=== PATIENT | male | born 1955 ===

== ENCOUNTER 2019-10-15 08:15 | Day surgery (SDC) | payer BC, MEDICARE ==
[~2019-10-15 08:15] MED LIST: Lactated Ringers 1,000 ML IV SCH; Sodium Chloride 0.9% 10 ML SDV IV PRN; Sodium Chloride 0.9% 10 ML Syringe FLUSH PRN; Sodium Chloride 0.9% 2.5 ML Syringe FLUSH PRN; ceFAZolin 1 GM in Premix Bag 1 BAG IV ONE
[2019-10-15] MEDS ORDERED: Propofol 200 MG/20 ML SDV ONE (08:48)
[2019-10-15] MEDS ORDERED: fentaNYL 100 MCG/2 ML SDV ONE (08:48)
[2019-10-15] MEDS ORDERED: Lidocaine 2% 5 ML SDV ONE (08:49)
--- NOTE | 2019-10-15 09:01 | PCM.PREANE ---
Preanesthetic Assessment - Anesthesia/Transfusion/Family Hx Anesthesia History: Prior Anesthesia Without Reaction Family History of Anesthesia Reaction: No Transfusion History: No Prior Transfusion(s) - Review of Systems General: No Symptoms Pulmonary: No Symptoms Cardiovascular: No Symptoms Gastrointestinal: No Symptoms Neurological: No Symptoms Other: Reports: None - Physical Assessment NPO Status Date: 09/15/19 NPO Status Time: 18:00 Vital Signs: Last Vital Signs Temp 97.2 F 10/15/19 08:25 Pulse 64 10/15/19 08:25 Resp 16 10/15/19 08:25 BP 138/84 10/15/19 08:25 Pulse Ox 96 10/15/19 08:25 Height: 5 ft 10 in Weight: 86.183 kg ASA Class: 1 Mental Status: Alert & Oriented x3 Airway Class: Mallampati = 2 Dentition: Reports: Normal Dentition ROM/Head Extension: Full Lungs: Clear to Auscultation, Normal Respiratory Effort Cardiovascular: Regular Rate, Regular Rhythm - Allergies Allergies/Adverse Reactions: Allergies Allergy/AdvReac Type Severity Reaction Status Date / Time animal dander Allergy SOB, Verified 10/11/19 09:08 watery eyes, sneezing - Blood Blood Available: No - Anesthesia Plan Pre-Op Medication Ordered: None - Acknowledgements Anesthesia Type Planned: General Anesthesia Pt an Appropriate Candidate for the Planned Anesthesia: Yes Alternatives and Risks of Anesthesia Discussed w Pt/Guardian: Yes Pt/Guardian Understands and Agrees with Anesthesia Plan: Yes PreAnesthesia Questionnaire HEENT History: Reports: Other (See Below) Other HEENT History: reading glasses Cardiovascular History: Reports: None Respiratory History: Reports: None Gastrointestinal History: Reports: None Other Genitourinary History: hx bladder cancer Musculoskeletal History: Reports: Fracture Other Musculoskeletal History: hx fx hand Neurological History: Reports: None Endocrine/Metabolic History: Reports: None Hematologic History: Reports: None Immunologic History: Reports: None Oncologic (Cancer) History: Reports: Bladder Dermatologic History: Reports: None - Past Surgical History Head Surgeries/Procedures: Reports: None HEENT Surgical History: Reports: None Cardiovascular Surgical History: Reports: None Respiratory Surgical History: Reports: None GI Surgical History: Reports: Colonoscopy Other Female Surgeries/Procedures: bladder cystotomy with fulgeration of bladder tumors Male Surgical History: Reports: TURBT-Transurethral Resection of Bladder Tumor Endocrine Surgical History: Reports: None Neurological Surgical History: Reports: None Musculoskeletal Surgical History: Reports: Arthroscopic Knee Oncologic Surgical History: Reports: Other (See Below) Other Oncologic Surgeries/Procedures: fulgeration of bladder tumors Dermatological Surgical History: Reports: None - SUBSTANCE USE Smoking Status *Q: Never Smoker Days Per Week of Alcohol Use: 7 Number of Drinks Per Day: 2 Total Drinks Per Week: 14 - HOME MEDS Home Medications: Home Meds Ascorbic Acid [Vitamin C] 2,000 mg PO DAILY 10/10/19 [History] Vitamin A 10,000 units PO DAILY 10/10/19 [History] Vitamin E 400 units PO DAILY 10/10/19 [History] - CURRENT (IN HOUSE) MEDS Current Meds: Current Medications Lactated Ringer's (Ringers, Lactated) 1,000 mls @ 100 mls/hr IV ASDIRECTED CHELSI Last Admin: 10/15/19 08:56 Dose: 100 mls/hr Sodium Chloride (Saline Flush) 10 ml FLUSH ASDIRECTED PRN PRN Reason: Keep Vein Open Sodium Chloride (Saline Flush) 2.5 ml FLUSH ASDIRECTED PRN PRN Reason: Keep Vein Open Sodium Chloride (Normal Saline) 10 ml IV ASDIRECTED PRN PRN Reason: IV Use Discontinued Medications Fentanyl (Sublimaze) Confirm Administered Dose 100 mcg .ROUTE .STK-MED ONE Stop: 10/15/19 08:49 Cefazolin Sodium/Dextrose 1 gm (/ Premix) 50 mls @ 100 mls/hr IV ONCALL ONE Stop: 10/15/19 00:30 Lidocaine (Xylocaine-Mpf 2%) Confirm Administered Dose 5 ml .ROUTE .STK-MED ONE Stop: 10/15/19 08:50 Propofol (Diprivan 20 Ml) Confirm Administered Dose 200 mg .ROUTE .STK-MED ONE Stop: 10/15/19 08:49
[2019-10-15] MEDS ORDERED: Ondansetron 4 MG/2 ML SDV ONE (10:04)
--- NOTE | 2019-10-15 11:27 | PCM48HPAN ---
Post Anesthesia Note - EVALUATION WITHIN 48HRS OF ANESTHETIC Vital Signs in Normal Range: Yes Patient Participated in Evaluation: Yes Respiratory Function Stable: Yes Airway Patent: Yes Cardiovascular Function Stable: Yes Hydration Status Stable: Yes Pain Control Satisfactory: Yes Nausea and Vomiting Control Satisfactory: Yes Mental Status Recovered: Yes Vital Signs: Last Vital Signs Temp 97.3 F 10/15/19 11:13 Pulse 60 10/15/19 11:13 Resp 14 10/15/19 11:13 BP 112/75 10/15/19 11:13 Pulse Ox 99 10/15/19 11:13
--- NOTE | 2019-10-15 11:27 | PCM.POSTAN ---
POST ANESTHESIA ASSESSMENT - MENTAL STATUS Mental Status: Alert, Oriented - VITAL SIGNS Vital Signs: Last Vital Signs Temp 97.3 F 10/15/19 11:13 Pulse 60 10/15/19 11:13 Resp 14 10/15/19 11:13 BP 112/75 10/15/19 11:13 Pulse Ox 99 10/15/19 11:13 - RESPIRATORY Respiratory Status: Respiratory Rate WNL, Airway Patent, O2 Saturation Stable - CARDIOVASCULAR CV Status: Pulse Rate WNL, Blood Pressure Stable - GASTROINTESTINAL GI Status: No Symptoms - POST OP HYDRATION Hydration Status: Adequate & Stable
[2019-10-15 11:31] VITALS: BP 126/78; PULSE 61
--- NOTE | 2019-10-15 14:35 | OR ---
SURGEON: Florentin Chavez M.D. DATE OF PROCEDURE: 10/15/2019 PREOPERATIVE DIAGNOSIS: Two small papillary bladder tumors, one at the 2 o'clock position just immediately behind the neck of the bladder, that is about maybe 3 or 4 mm in measurement, and the other one is a smaller one yet involving a small part of the right ureteral orifice. PROCEDURE: Fulguration of both. DESCRIPTION OF PROCEDURE: The patient was given general anesthesia. He was in dorsal lithotomy position, prepped and draped in sterile drapes. Cystourethroscopy was done, the urethra was normal. The tumor behind the neck of the bladder on the left side was fulgurated first. The small tumor, probably 3 mm in greatest dimension, papillary, involving the right ureteral orifice, that was removed using the cold cup biopsy forceps and the base of it was fulgurated. The patient tolerated both procedures well. The rest of the bladder was clean. The bladder was emptied, and the patient was moved to recovery room in good condition. He comes back to the office in 4 months for cystoscopy. HUAN / ALEXIS /[id number]
[2019-10-16] MEDS ORDERED: Ascorbic Acid 500 MG Tab PO SCH (09:00)
[2019-10-16] MEDS ORDERED: Non-Formulary Medication 1 Each (Vitamin E [Vitamin E] 400 UNITS) PO SCH (09:00)
[2019-10-16] MEDS ORDERED: VITAMIN A 10000 UNIT PO SCH (09:00)
== END 2019-10-15 11:48 | disposition home or self-care (01) ==
LOC: MW.SDS 08:15
PROVIDERS: ATTEND Urology
DX: D49.4 Neoplasm of unspecified behavior of bladder (principal); Z85.51 Personal history of malignant neoplasm of bladder; Z98.890 Other specified postprocedural states; Z91.048 Other nonmedicinal substance allergy status
CPT/HCPCS: 52234; J0690; J2001; J2405; J2704; J3010; J7120; 00912

== ENCOUNTER 2020-03-05 07:25 | Day surgery (SDC) | payer BC, MEDICARE ==
[~2020-03-05 07:25] MED LIST changes: +Ketorolac 30 MG/ML SDV ONE; +Midazolam 1 MG/ML 2 ML SDV ONE; +Ondansetron 4 MG/2 ML SDV ONE; +Propofol 200 MG/20 ML SDV ONE; +Rocuronium Bromide 50 MG/5 ML Syringe ONE; +fentaNYL 100 MCG/2 ML SDV ONE
[2020-03-05] MEDS ORDERED: Sugammadex Sodium 200 MG/2 ML VIAL ONE (07:30)
--- NOTE | 2020-03-05 08:29 | PCM.PREANE ---
Preanesthetic Assessment - Anesthesia/Transfusion/Family Hx Anesthesia History: Prior Anesthesia Without Reaction Family History of Anesthesia Reaction: No Transfusion History: No Prior Transfusion(s) Intubation History: Unknown - Review of Systems General: No Symptoms Pulmonary: No Symptoms Cardiovascular: No Symptoms Gastrointestinal: No Symptoms Neurological: No Symptoms Other: Reports: None - Physical Assessment NPO Status Date: 03/04/20 NPO Status Time: 20:00 Vital Signs: Last Vital Signs Temp 36.3 C 03/05/20 08:10 Pulse 72 03/05/20 08:10 Resp 15 03/05/20 08:10 BP 121/93 H 03/05/20 08:10 Pulse Ox 95 03/05/20 08:10 Height: 5 ft 10 in Weight: 83.915 kg ASA Class: 2 Mental Status: Alert & Oriented x3 Airway Class: Mallampati = 2 Dentition: Reports: Normal Dentition (small chip upper front incisor) Thyro-Mental Finger Breadths: 3 Mouth Opening Finger Breadths: 3 (narrow pallete) ROM/Head Extension: Full Lungs: Clear to Auscultation, Normal Respiratory Effort Cardiovascular: Regular Rate, Regular Rhythm - Allergies Allergies/Adverse Reactions: Allergies Allergy/AdvReac Type Severity Reaction Status Date / Time animal dander Allergy SOB, Verified 03/02/20 10:23 watery eyes, sneezing - Blood Blood Available: No - Anesthesia Plan Pre-Op Medication Ordered: None - Acknowledgements Anesthesia Type Planned: General Anesthesia Pt an Appropriate Candidate for the Planned Anesthesia: Yes Alternatives and Risks of Anesthesia Discussed w Pt/Guardian: Yes Pt/Guardian Understands and Agrees with Anesthesia Plan: Yes PreAnesthesia Questionnaire HEENT History: Reports: Other (See Below) Other HEENT History: reading glasses Cardiovascular History: Reports: None Respiratory History: Reports: None Gastrointestinal History: Reports: None Genitourinary History: Reports: BPH Other Genitourinary History: hx bladder cancer Musculoskeletal History: Reports: Fracture Other Musculoskeletal History: hx fx hand Neurological History: Reports: None Endocrine/Metabolic History: Reports: None Hematologic History: Reports: None Immunologic History: Reports: None Oncologic (Cancer) History: Reports: Bladder Dermatologic History: Reports: None - Past Surgical History Head Surgeries/Procedures: Reports: None HEENT Surgical History: Reports: None Cardiovascular Surgical History: Reports: None Respiratory Surgical History: Reports: None GI Surgical History: Reports: Colonoscopy Other Female Surgeries/Procedures: bladder cystotomy with fulgeration of bladder tumors Male Surgical History: Reports: TURBT-Transurethral Resection of Bladder Tumor Endocrine Surgical History: Reports: None Neurological Surgical History: Reports: None Musculoskeletal Surgical History: Reports: Arthroscopic Knee Oncologic Surgical History: Reports: Other (See Below) Other Oncologic Surgeries/Procedures: fulgeration of bladder tumors Dermatological Surgical History: Reports: None - SUBSTANCE USE Smoking Status *Q: Never Smoker Recreational Drug Use History: No - HOME MEDS Home Medications: Home Meds Ascorbic Acid [Vitamin C] 2,000 mg PO 10/10/19 [History] Vitamin A 10,000 units PO TID 10/10/19 [History] Vitamin E 400 units PO DAILY 10/10/19 [History] Multivitamin 1 tab PO DAILY 03/02/20 [History] - CURRENT (IN HOUSE) MEDS Current Meds: Current Medications Lactated Ringer's (Ringers, Lactated) 1,000 mls @ 100 mls/hr IV ASDIRECTED CHELSI Sodium Chloride (Saline Flush) 2.5 ml FLUSH ASDIRECTED PRN PRN Reason: Keep Vein Open Sodium Chloride (Normal Saline) 10 ml IV ASDIRECTED PRN PRN Reason: IV Use Sodium Chloride (Saline Flush) 10 ml FLUSH ASDIRECTED PRN PRN Reason: Keep Vein Open Discontinued Medications Fentanyl (Sublimaze) Confirm Administered Dose 100 mcg .ROUTE .STK-MED ONE Stop: 03/05/20 07:24 Cefazolin Sodium/Dextrose 1 gm (/ Premix) 50 mls @ 100 mls/hr IV ONCALL ONE Stop: 03/05/20 00:30 Acetaminophen (Ofirmev) Confirm Administered Dose 100 mls @ as directed .ROUTE .STK-MED ONE Stop: 03/05/20 07:31 Ketorolac Tromethamine (Toradol) Confirm Administered Dose 30 mg .ROUTE .STK-MED ONE Stop: 03/05/20 07:25 Midazolam HCl (Versed 1 Mg/Ml) Confirm Administered Dose 2 mg .ROUTE .STK-MED ONE Stop: 03/05/20 07:24 Ondansetron HCl (Zofran) Confirm Administered Dose 4 mg .ROUTE .STK-MED ONE Stop: 03/05/20 07:23 Propofol (Diprivan 20 Ml) Confirm Administered Dose 400 mg .ROUTE .STK-MED ONE Stop: 03/05/20 07:23 Rocuronium [place] (Rocuronium Ho [place] Kus) Confirm Administered Dose 100 mg .ROUTE .STK-MED ONE Stop: 03/05/20 07:24 Sugammadex Sodium (Bridion) Confirm Administered Dose 200 mg .ROUTE .STK-MED ONE Stop: 03/05/20 07:31
[2020-03-05] MEDS ORDERED: Iopamidol 200-M 10 ML vial ITHECAL ONE (09:29)
[2020-03-05] MEDS ORDERED: Sodium Chloride 0.9% 20 ML ONE (10:02)
[2020-03-05] MEDS ORDERED: ceFAZolin 1 GM Vial ONE (10:02)
--- NOTE | 2020-03-05 11:08 | PCM.POSTAN ---
POST ANESTHESIA ASSESSMENT - MENTAL STATUS Mental Status: Alert, Oriented - VITAL SIGNS Vital Signs: Last Vital Signs Temp 36.2 C 03/05/20 10:50 Pulse 66 03/05/20 11:05 Resp 14 03/05/20 11:05 BP 106/61 03/05/20 11:05 Pulse Ox 98 03/05/20 11:05 - RESPIRATORY Respiratory Status: Respiratory Rate WNL, Airway Patent, O2 Saturation Stable - CARDIOVASCULAR CV Status: Pulse Rate WNL, Blood Pressure Stable - GASTROINTESTINAL GI Status: No Symptoms - PAIN Pain Score: 2 - POST OP HYDRATION Hydration Status: Adequate & Stable
--- NOTE | 2020-03-05 12:22 | PCM48HPAN ---
Post Anesthesia Note - EVALUATION WITHIN 48HRS OF ANESTHETIC Vital Signs in Normal Range: Yes Patient Participated in Evaluation: Yes Respiratory Function Stable: Yes Airway Patent: Yes Cardiovascular Function Stable: Yes Hydration Status Stable: Yes Pain Control Satisfactory: Yes Nausea and Vomiting Control Satisfactory: Yes Mental Status Recovered: Yes Vital Signs: Last Vital Signs Temp 36.2 C 03/05/20 10:50 Pulse 66 03/05/20 11:05 Resp 14 03/05/20 11:05 BP 106/61 03/05/20 11:05 Pulse Ox 98 03/05/20 11:05 - COMMENTS/OBSERVATIONS Free Text/Narrative:: No anesthesia problems
[2020-03-05] MEDS ORDERED: VITAMIN A 10000 UNIT PO SCH (14:00)
[2020-03-05 14:24] VITALS: BP 127/81; PULSE 52
--- NOTE | 2020-03-05 16:35 | OR ---
SURGEON: Florentin Chavez M.D. DATE OF PROCEDURE: 03/05/2020 PREOPERATIVE DIAGNOSIS: Right lower ureteral papillary tumor. POSTOPERATIVE DIAGNOSIS: Right lower ureteral papillary tumor. OPERATION: Right ureteroscopy and ureteral meatotomy and ablation of papillary small tumor. DESCRIPTION OF PROCEDURE: The patient was given general anesthesia. He was placed in dorsal lithotomy position, prepped and draped in sterile drapes. Cystourethroscopy was done. The tumor was identified at the right ureteral orifice. Attempts at placing the rigid ureteroscope in the ureter were not successful. The ureteral orifice needed to be dilated, so the UroMax II balloon dilated to approximately 15- Mongolian after which a guidewire was then placed in the ureter and the rigid ureteroscope was advanced in the ureter to find no other tumors in the entire right lower ureter. The papillary tumors that were at the ureteral orifice were then fulgurated. Ureterotomy was done to make sure that that does not scar down. With that done, the procedure was terminated. The bladder was emptied, and the patient was moved to recovery room in good condition. HUAN / ALEXIS /[id number]
[2020-03-06] MEDS ORDERED: Multivitamin Tab PO SCH (09:00)
[2020-03-06] MEDS ORDERED: VITAMIN E 400 UNIT PO SCH (09:00)
== END 2020-03-05 12:45 | disposition home or self-care (01) ==
LOC: MW.SDS 07:25
PROVIDERS: ATTEND Urology
DX: D41.21 Neoplasm of uncertain behavior of right ureter (principal); N40.0 Benign prostatic hyperplasia without lower urinary tract symptoms; Z11.59 Encounter for screening for other viral diseases; Z79.899 Other long term (current) drug therapy; Z85.51 Personal history of malignant neoplasm of bladder; Z98.890 Other specified postprocedural states
CPT/HCPCS: 52354; 87635; C1769; J0131; J0690; J1885; J2250; J2405; J2704; J3010; J7120; Q9966; 00912; J3490; U0002